=== PATIENT | female | born 1995 | race Hispanic/Latino ===

== ENCOUNTER 2017-03-02 13:37 | Emergency (ER) | payer SELFPAY ==
--- NOTE | 2017-03-02 18:15 | Emergency Department Report ---
Chief Complaint: Headache Stated Complaint: NAUSEA/VOMITING/DIZZY Time Seen by Provider: 03/02/17 17:05 - HPI History of Present Illness: Patient here complaining of throbbing headache and out of 10 and she took BC powder without any help. Reports that she is dizzy and vomited and that started this morning. She does not have a history of migraine and last headache was a couple weeks ago but it was nothing like the headache that she has today. She reports some abdominal pain. - ROS Review of Systems: All Systems are negative unless stated in HPI above - Exam Vital Signs: Vital Signs 03/02/17 13:47 Temperature 99.1 F Pulse Rate 128 H Respiratory 16 Rate Blood Pressure 141/78 O2 Sat by Pulse 100 Oximetry Physical Exam: General: A 22-year-old female well-nourished well-developed and nontoxic in appearance Head: Atraumatic, normocephalic. No contusion, laceration or abrasion Mini-Neurological: Alert and oriented 3, speech is clear and equal, no facial droop and, normal gait. GCS @15 MSE screening note: Focused history and physical exam performed. Due to findings the following was ordered:SEE mdm ED Medical Decision Making - Medical Decision Making MDM: Patient strained by provider and appropriate labs ordered include UA, urinalysis, CBC, CMP and CT scan of the head. ED Disposition for MSE Condition: Stable Referrals: PRIMARY CARE, [Primary Care Provider] - 3-5 Days
[2017-03-02 18:29] LABS: Bilirubin,Urine NEG (Negative); Blood,Urine NEG (Negative); Ketones,Urine NEG (Negative); Leukocyte Esterase,Urine NEG (Negative); Mucus,Urine FEW /HPF; Nitrite,Urine NEG (Negative); Protein,Urine <15 mg/dL mg/dL (Negative); Urobilinogen,Urine < 2.0 mg/dL (<2.0)
[2017-03-02 18:53] LABS: Blood Urea Nitrogen 9 mg/dL (7-17); Calcium 9.2 mg/dL (8.4-10.2); Carbon Dioxide 24 mmol/L (22-30); Glucose 110 mg/dL (65-100)
[2017-03-02 18:54] LABS: Alanine Aminotransferase 19 units/L (7-56); Albumin 4.2 g/dL (3.9-5); Albumin/Globulin Ratio 1.1 %; Alkaline Phosphatase 75 units/L (35-129); Anion Gap 21 mmol/L; Chloride 98.9 mmol/L (98-107); Potassium 4.4 mmol/L (3.6-5.0); Sodium 139 mmol/L (137-145)
[2017-03-02 19:05] LABS: Basophils % (Auto) 0.5 % (0.0-1.8); Eosinophils % (Auto) 0.2 % (0.0-4.3); Mean Corpuscular HGB Conc 29 % (30-34); Platelet Count 389 K/mm3 (140-440); Red Blood Count 4.46 M/mm3 (3.65-5.03); Red Cell Distribution Width 17.1 % (13.2-15.2); White Blood Count 12.2 K/mm3 (4.5-11.0)
[2017-03-02 19:07] LABS: Hematocrit 28.1 % (30.3-42.9); Hemoglobin 8.1 gm/dl (10.1-14.3); Mean Corpuscular Hemoglobin 18 pg (28-32); Mean Corpuscular Volume 63 fl (79-97)
[2017-03-02] MEDS ORDERED: REGLAN IV ONE (19:08)
--- NOTE | 2017-03-02 20:37 | Cat Scan Report ---
FINAL REPORT PROCEDURE: CT HEAD/BRAIN WO CON TECHNIQUE: Computerized tomography of the head was performed without contrast material. HISTORY: headache, chills, nausea COMPARISON: No prior studies are available for comparison. FINDINGS: Skull and scalp: Normal. Paranasal sinuses: Normal. Ventricles and subarachnoid spaces: Normal. Cerebrum: No evidence of hemorrhage, acute infarction or mass . Cerebellum and brainstem: No evidence of hemorrhage, acute infarction or mass. Vasculature: Normal. Comments: None. IMPRESSION: Normal Examination
--- NOTE | 2017-03-02 21:11 | Emergency Department Report ---
ED Headache HPI - General Chief Complaint: Headache Stated Complaint: NAUSEA/VOMITING/DIZZY Time Seen by Provider: 03/02/17 17:05 - History of Present Illness Initial Comments: 22-year-old female past medical history genetic defect right hemihypertrophy, anemia,? CK D Allergies/Adverse Reactions: Allergies Penicillins Allergy (Verified 03/02/17 13:50) Unknown sulfamethoxazole [From Bactrim] Adverse Reaction (Verified 03/02/17 13:50) Vomiting trimethoprim [From Bactrim] Adverse Reaction (Verified 03/02/17 13:50) Vomiting Home Medications: Ambulatory Orders Ferrous Sulfate [Feosol 325 MG tab] 325 mg PO QDAY #1 bottle 03/02/17 Ondansetron [Zofran Odt] 4 mg PO Q8HR PRN #12 tab.rapdis 03/02/17 ED Review of Systems ROS: Stated complaint: NAUSEA/VOMITING/DIZZY Other details as noted in HPI ED Past Medical Hx - Medications Home Medications: Home Medications Medication Instructions Recorded Confirmed Last Taken Type Ferrous Sulfate [Feosol 325 MG tab] 325 mg PO QDAY #1 bottle 03/02/17 Unknown Rx Ondansetron [Zofran Odt] 4 mg PO Q8HR PRN #12 tab.rapdis 03/02/17 Unknown Rx ED Physical Exam - General Limitations: No Limitations ED Course Vital Signs 03/02/17 03/02/17 13:47 21:26 Temperature 99.1 F 100.2 F H Pulse Rate 128 H 108 H Respiratory 16 18 Rate Blood Pressure 141/78 Blood Pressure 124/71 [Left] O2 Sat by Pulse 100 99 Oximetry ED Medical Decision Making - Lab Data Result diagrams: 03/02/17 18:20 03/02/17 18:20 - Medical Decision Making A/P: Migraine headache number, anemia 1- headache went from 10 /10 to 0/10 with one dose of IV Reglan 2- CT head within normal limits 3- CBC shows mild leukocytosis and borderline low H&H, urinanalysis unremarkable , EKG sinus tachycardia 4- pt now tolerating by mouth 5- ferrous sulfate supplementation, Zofran when necessary, naproxen when necessary 6- f/u with primary care doctor Critical care attestation.: If time is entered above; I have spent that time in minutes in the direct care of this critically ill patient, excluding procedure time. ED Disposition Clinical Impression: Migraine headache Qualifiers: Migraine type: without aura Status migrainosus presence: without status migrainosus Intractability: not intractable Qualified Code(s): G43.009 - Migraine without aura, not intractable, without status migrainosus Anemia Qualifiers: Anemia type: iron deficiency Iron deficiency anemia type: other iron deficiency Qualified Code(s): D50.8 - Other iron deficiency anemias Disposition: TO HOME OR SELFCARE Is pt being admited?: No Does the pt Need Aspirin: No Condition: Stable Instructions: Migraine Headache (ED), Iron Rich Diet (ED), Iron Deficiency Anemia (ED), Anemia (ED) Prescriptions: Ferrous Sulfate [Feosol 325 MG tab] 325 mg PO QDAY #1 bottle Ondansetron [Zofran Odt] 4 mg PO Q8HR PRN #12 tab.rapdis PRN Reason: Nausea Referrals: PRIMARY CARE, [Primary Care Provider] - 3-5 Days
[2017-03-02 21:27] VITALS: BP 124/71
[2017-03-02] MEDS ORDERED: NACL 0.9% 500 ML 500 ML IV ONE (21:35)
== END 2017-03-02 22:05 | disposition home or self-care (01) ==
LOC: ED 13:37
DX: G43.009 Migraine without aura, not intractable, without status migrainosus (principal); D50.8 Other iron deficiency anemias
CPT/HCPCS: 36415; 70450; 80053; 81001; 81025; 85025; 93005; 93010; 96374; 99284; J2765

== ENCOUNTER 2021-10-14 22:24 | Emergency (ER) | payer SELFPAY ==
--- NOTE | 2021-10-14 23:09 | XRay Report ---
RIGHT ANKLE 4 VIEW(S) INDICATION / CLINICAL INFORMATION: INJURY with right ankle pain COMPARISON: None available. FINDINGS: BONES / JOINT(S): No acute fracture or subluxation. Moderate degenerative arthrosis of the tarsometat arsal joints, especially the 1st TMT joint. Chronic appearing bony exostosis along the medial aspect of the medial malleolus. Old, healed fracture of the distal 1st metatarsal is only partially visualiz ed. SOFT TISSUES: Mild medial ankle soft tissue swelling. ADDITIONAL FINDINGS: None. IMPRESSION: 1. No acute fracture or subluxation. Signer Name: Lena Julian MD Signed: 10/14/2021 11:05 PM Workstation Name: [id number]
--- NOTE | 2021-10-14 23:11 | XRay Report ---
RIGHT KNEE 3 VIEW(S) INDICATION / CLINICAL INFORMATION: INJURY with right knee pain COMPARISON: None available. FINDINGS: BONES / JOINT(S): Mild medial compartment degenerative arthrosis. No significant arthritis. SOFT TISSUES: No definite focal soft tissue swelling. Soft tissue prominence anterior to the proximal tibia with ovoid, lucent appearance possibly representing a soft tissue lipoma. ADDITIONAL FINDINGS: None. IMPRESSION: 1. No acute fracture or subluxation. Signer Name: Lena Julian MD Signed: 10/14/2021 11:06 PM Workstation Name: [id number]
--- NOTE | 2021-10-15 01:56 | Emergency Department Report ---
ED General Adult HPI - General Chief complaint: Extremity Injury, Lower Stated complaint: INJURED ANKLE Time Seen by Provider: 10/15/21 01:47 Source: patient Mode of arrival: Ambulatory Limitations: No Limitations - History of Present Illness Initial comments: Is a 26-year-old female with history of obesity who presents for right knee and ankle pain status post twisting today. Patient states she was walking outside and twisted her ankle and knee. Patient is amatory with mild limp. Complains of 4/10 pain. Is exacerbated by weightbearing and prolonged standing. Pain is relieved by nothing tried. There are no abrasions lacerations or bleeding. There is no obvious deformities. There is no numbness tingling or paralysis. - Related Data Previous Rx's Medication Instructions Recorded Last Taken Type Ferrous Sulfate [Feosol 325 MG tab] 325 mg PO QDAY #1 bottle 03/02/17 Unknown Rx Naproxen [Naproxen TAB] 250 mg PO BID PRN #20 tablet 03/02/17 Unknown Rx Ondansetron [Zofran Odt] 4 mg PO Q8HR PRN #12 tab.rapdis 03/02/17 Unknown Rx Ibuprofen [Motrin 800 MG tab] 800 mg PO Q8HR PRN #30 tablet 10/15/21 Unknown Rx Allergies Allergy/AdvReac Type Severity Reaction Status Date / Time Penicillins Allergy Unknown Verified 03/02/17 13:50 sulfamethoxazole AdvReac Vomiting Verified 03/02/17 13:50 [From Bactrim] trimethoprim [From Bactrim] AdvReac Vomiting Verified 03/02/17 13:50 ED Review of Systems ROS: Stated complaint: INJURED ANKLE Other details as noted in HPI Constitutional: denies: chills, fever Eyes: denies: eye pain, eye discharge, vision change ENT: denies: ear pain, throat pain Respiratory: denies: cough, shortness of breath, wheezing Cardiovascular: denies: chest pain, palpitations Endocrine: no symptoms reported Gastrointestinal: as per HPI Genitourinary: denies: urgency, dysuria, discharge Musculoskeletal: arthralgia, other (right knee and ankle pain ) Skin: as per HPI Neurological: denies: headache, weakness, paresthesias Psychiatric: denies: anxiety, depression Hematological/Lymphatic: denies: easy bleeding, easy bruising ED Past Medical Hx - Past Medical History Previous Medical History?: No - Surgical History Past Surgical History?: No - Medications Home Medications: Home Medications Medication Instructions Recorded Confirmed Last Taken Type Ferrous Sulfate [Feosol 325 MG tab] 325 mg PO QDAY #1 bottle 03/02/17 Unknown Rx Naproxen [Naproxen TAB] 250 mg PO BID PRN #20 tablet 03/02/17 Unknown Rx Ondansetron [Zofran Odt] 4 mg PO Q8HR PRN #12 tab.rapdis 03/02/17 Unknown Rx Ibuprofen [Motrin 800 MG tab] 800 mg PO Q8HR PRN #30 tablet 10/15/21 Unknown Rx ED Physical Exam - General Limitations: No Limitations General appearance: alert, in no apparent distress - Head Head exam: Present: normocephalic, normal inspection - Eye Eye exam: Present: normal appearance, PERRL, EOMI Pupils: Present: normal accommodation - ENT ENT exam: Present: mucous membranes moist - Neck Neck exam: Present: normal inspection, full ROM. Absent: tenderness, lymphadenopathy, thyromegaly - Respiratory Respiratory exam: Present: normal lung sounds bilaterally. Absent: respiratory distress, wheezes, stridor, chest wall tenderness - Cardiovascular Cardiovascular Exam: Present: regular rate, normal rhythm, normal heart sounds. Absent: systolic murmur, diastolic murmur, rubs, gallop - GI/Abdominal GI/Abdominal exam: Present: soft, normal bowel sounds. Absent: distended, tenderness - Rectal Rectal exam: Present: deferred - Extremities Exam Extremities exam: Present: full ROM, normal capillary refill, joint swelling - Expanded Lower Extremity Exam Right Knee exam: Present: full ROM, tenderness (anterior knee ), full knee extension. Absent: swelling, abrasion, laceration, ecchymosis, deformity, crepidus, dislocation, erythema, effusion, pain w/ pronation/supination, posterior draw sign Lower Leg exam: Present: full ROM. Absent: tenderness Ankle exam: Present: tenderness, swelling. Absent: abrasion, laceration, ecchymosis, deformity, crepidus, dislocation, erythema, anterior draw sign Foot/Toe exam: Present: full ROM, swelling. Absent: tenderness, abrasion, laceration, ecchymosis, deformity, crepidus, dislocation, erythema, amputation, puncture wound, foreign body, calcaneal tenderness, tenderness at base of 5th metatarsal Neuro vascular tendon exam: Absent: pulse deficit, motor deficit, sensory deficit, tendon deficit Gait: Positive: observed and limited by pain - Back Exam Back exam: Present: normal inspection, full ROM. Absent: paraspinal tenderness, vertebral tenderness - Neurological Exam Neurological exam: Present: alert, oriented X3, CN II-XII intact, reflexes normal. Absent: motor sensory deficit - Expanded Neurological Exam Expanded Patient oriented to: Present: person, place, time Speech: Present: fluid speech Motor strength exam: RUE: 5, LUE: 5, RLE: 5, LLE: 5 DTR: knee (R): 1+, knee (L): 1+, ankle (R): 1+, ankle (L): 1+ Best Eye Response ([place]): (4) open spontaneously Best Motor Response ([place]): (6) obeys commands Best Verbal Response ([place]): (5) oriented [place] Total: 15 - Psychiatric Psychiatric exam: Present: normal affect, normal mood - Skin Skin exam: Present: warm, dry, intact, normal color. Absent: rash ED Course Vital Signs 10/14/21 22:28 Temperature 98.0 F Pulse Rate 98 H Respiratory 18 Rate Blood Pressure 190/105 O2 Sat by Pulse 98 Oximetry ED Medical Decision Making - Radiology Data Radiology results: report reviewed, image reviewed RIGHT KNEE 3 VIEW(S) INDICATION / CLINICAL INFORMATION: INJURY with right knee pain COMPARISON: None available. FINDINGS: BONES / JOINT(S): Mild medial compartment degenerative arthrosis. No significant arthritis. SOFT TISSUES: No definite focal soft tissue swelling. Soft tissue prominence anterior to the proximal tibia with ovoid, lucent appearance possibly representing a soft tissue lipoma. ADDITIONAL FINDINGS: None. IMPRESSION: 1. No acute fracture or subluxation. Signer Name: Lena Julian MD Signed: 10/14/2021 11:06 PM Workstation Name: [id number] Transcribed By: DT Dictated By: Deni Julian MD Electronically Authenticated By: Deni Julian MD Signed Date/Time: 10/14/21 4860 RIGHT ANKLE 4 VIEW(S) INDICATION / CLINICAL INFORMATION: INJURY with right ankle pain COMPARISON: None available. FINDINGS: BONES / JOINT(S): No acute fracture or subluxation. Moderate degenerative arthrosis of the tarsometatarsal joints, especially the 1st TMT joint. Chronic appearing bony exostosis along the medial aspect of the medial malleolus. Old, healed fracture of the distal 1st metatarsal is only partially visualized. SOFT TISSUES: Mild medial ankle soft tissue swelling. ADDITIONAL FINDINGS: None. IMPRESSION: 1. No acute fracture or subluxation. Signer Name: Lena Julian MD Signed: 10/14/2021 11:05 PM Workstation Name: [id number] Transcribed By: DT Dictated By: Deni Julian MD Electronically Authenticated By: Deni Julian MD Signed Date/Time: 10/14/212304 DD/ 02 TD/TT: - Medical Decision Making X-rays and into home no soft tissue abnormality no subluxation no dislocation, x-ray ankle chronic arthralgia. No acute fracture or soft tissue abnormality. Plan DC to home with prescriptions. Follow-up with primary care doctor in 2 to 3 days. Return to emergency department should symptoms worsen. Critical care attestation.: If time is entered above; I have spent that time in minutes in the direct care of this critically ill patient, excluding procedure time. ED Disposition Clinical Impression: Knee strain Qualifiers: Encounter type: initial encounter Laterality: right Qualified Code(s): S86.911A - Strain of unspecified muscle(s) and tendon(s) at lower leg level, right leg, initial encounter Ankle strain Qualifiers: Encounter type: initial encounter Laterality: right Qualified Code(s): S96.911A - Strain of unspecified muscle and tendon at ankle and foot level, right foot, initial encounter Disposition: HOME / SELF CARE / HOMELESS Is pt being admited?: No Does the pt Need Aspirin: No Condition: Stable Instructions: How to Use Cold Therapy, Acute Knee Pain, Adult, Ankle Sprain Additional Instructions: Take over the counter ibuprofen as needed for pain , knee and ankle exercises as directed. follow up with your primary care doctor in 2-3 days. Return to emergency if symptoms worsen Prescriptions: Ibuprofen [Motrin 800 MG tab] 800 mg PO Q8HR PRN #30 tablet PRN Reason: Pain Referrals: BRIGIDA ZHENG MD [Staff Physician] - 3-5 Days Forms: Work/School Release Form(ED) Time of Disposition: 02:10
[2021-10-15 04:01] VITALS: BP 163/88
== END 2021-10-15 03:19 | disposition home or self-care (01) ==
LOC: ED 22:24
DX: S86.911A Strain of unspecified muscle(s) and tendon(s) at lower leg level, right leg, initial encounter (principal); S96.911A Strain of unspecified muscle and tendon at ankle and foot level, right foot, initial encounter; X50.9XXA Other and unspecified overexertion or strenuous movements or postures, initial encounter; Y93.89 Activity, other specified; Y92.89 Other specified places as the place of occurrence of the external cause; Y99.8 Other external cause status
CPT/HCPCS: 99283